=== PATIENT | female | born 1950 | race Caucasian/White ===

== ENCOUNTER 2025-08-05 21:27 | Emergency (ER) | payer OTHER ==
[2025-08-05 21:33] VITALS: BMI 33.6
[2025-08-05] MEDS ORDERED: ACETAMINOPHEN 325 MG TABLET (FP) ONE (22:40)
[2025-08-05] MEDS: ACETAMINOPHEN 325 MG TABLET (FP) PO ONE (22:50)
[2025-08-05 22:55] LABS: ABSOLUTE IMMATURE GRANULOCYTES 0.01 x10^3/uL (0.0-0.031); BASOPHILS # 0.05 x10^3/uL (0.01-0.08); EOSINOPHIL % 1.4 % (0.7-5.8); EOSINOPHILS # 0.10 x10^3/uL (0.04-0.36); MCHC 31.7 g/dl (32.2-35.5); MEAN CELL VOLUME 91.1 fl (79.4-94.8); MEAN PLT VOLUME 9.8 fl (9.4-12.3); MONOCYTE # 0.55 x10^3/uL (0.24-0.86); MONOCYTE % 7.7 % (4.7-12.5); RDW 13.7 % (12.4-16.6)
[2025-08-05 23:08] LABS: GLUCOSE,RANDOM 113.0 mg/dL (74-106); TOT PROT 7.6 g/dl (6.4-8.2)
[2025-08-05 23:09] LABS: CO2 28.0 mmol/L (21-32)
[2025-08-05 23:11] LABS: ALK PHOS 100.0 U/L (40-150)
[2025-08-05 23:13] LABS: CREATININE 0.76 mg/dL (0.55-1.3); SGOT/AST 34.0 U/L (5-34); SGPT/ALT 17.0 U/L (0-55)
[2025-08-05 23:20] LABS: N-TERMINAL BNP 185.6 pg/mL (0-299.9)
[2025-08-06 00:25] VITALS: BP 137/65; PULSE 60; RESP 19; TEMP 97.8
== END 2025-08-06 00:22 | disposition home or self-care (01) ==
LOC: JER 21:27
DX: M79.89 Other specified soft tissue disorders (principal); R06.00 Dyspnea, unspecified; R60.0 Localized edema
CPT/HCPCS: 36415; 71046-TC-FY; 80053; 83880; 84484; 85025; 93005; 93010; 93970-TC; 99285-25